=== PATIENT | female | born 1965 | race Caucasian/White ===

== ENCOUNTER → 2021-03-27 07:08 | Outpatient (CLI) | payer OTHER, SELFPAY ==
--- NOTE | 2021-03-27 09:04 | NEURO_ITS ---
NCS and/or EMG Patient Report Ordering Doctor: Braxton Rubio DATE OF SERVICE: 03/27/21 Indication: Intermittent numbness and tingling of the 4th/5th digits of both hands. Symptoms are prominent when awakening from sleep, but will subside with time. There is no fixed sensory loss or muscle weakness. Evaluate for ulnar neuropathy. Findings: Nerve conduction studies were performed in the right and left upper extremities. The right median motor study recording the abductor pollicis brevis showed a normal amplitude, normal distal latency and normal conduction velocity. The right ulnar motor study recording the abductor digiti minimi showed a normal amplitude, normal distal latency and normal conduction velocity. No conduction block or focal slowing was present across the elbow. The right ulnar motor study recording the first dorsal interosseous showed a normal amplitude, normal distal latency and normal conduction velocity. No conduction block or focal slowing was present across the elbow. Right median-ulnar lumbrical / interosseous motor latencies showed a normal median latency compared to the ulna r. The right median sensory response recording digit two showed a normal amplitude, latency and conduction velocity. The right ulnar sensory response recording digit five showed a normal amplitude, latency and conduction velocity. The right radial sensory response recording over the extensor snuff box showed a normal amplitude, latency and conduction velocity. The left median motor study recording the abductor pollicis brevis showed a normal amplitude, normal distal latency and normal conduction velocity. The left ulnar motor study recording the abductor digiti minimi showed a normal ampl itude, normal distal latency and normal conduction velocity. No conduction block or focal slowing was present across the elbow. Left median-ulnar lumbrical / interosseous motor latencies showed a normal median latency compared to the ulnar. The right median sensory response recording digit two showed a normal amplitude, latency and conduction velocity. The right ulnar sensory response recording digit five showed a normal amplitude, latency and conduction velocity. The right radial sensory response recording over the extensor snuff box showed a normal amplitude, latency and conduction velocity. Needle EMG of the right upper extremity and cervical paraspinal muscles was performed. No denervation was seen in any muscle. All motor unit morphology, activation and recruitment patterns were normal. Impression: This is a normal study. There is no electrophysiologic evidence of ulnar neuropathy across the elbow in either upper extremity. In addition, there is no electrophysiologic evidence of a cervical radiculopathy or other entrapment neuropathy in the right upper extremity. Please note, this test can be insensitive for detecting ulnar neuropathy when symptoms are transient. Presumably, in these patients, intermittent compression results in pain and paresthesias from ischemia, but without any fixed demyelination or axonal loss that can be demonstrated on electrodiagnostic st udies. Thus, clinical correlation is required in the interpretation of this negative study. Johnathan Ruiz D.O.
== END ==
PROVIDERS: PCP Internal Medicine; Referring Provider Orthopaedic Surgery; Visit Provider Orthopaedic Surgery
DX: R20.2 Paresthesia of skin (principal); M25.531 Pain in right wrist; M25.532 Pain in left wrist
CPT/HCPCS: 95886; 95913

== ENCOUNTER 2022-05-07 09:30 | Outpatient (RCR) | payer OTHER, SELFPAY ==
--- NOTE | 2022-02-19 14:15 | HP.PTEVAL ---
Patient's Visit Information CHASE RUBIN is a 56 year old F referred to Physical Therapy by Hipolito Hubbard PA-C with a diagnosis of LATERAL EPICONDYLITIS R ELBOW. Date of Evaluation: 02/19/22 Physical Therapist: Marilyn Seymour PT, Cert MDT - Visit Plan Frequency: 2-3x /Week Duration: 4-6 Weeks Plan: POSTURE CORRECTION/STRENGTHENING, INSTRUCTION IN APPROPRIATE BODY MECHANICS AND ACTIVITY MODIFICATIONS. R UE ROM, STRETCHING AND STRENGTHENING. HEP INSTRUCTION. - Subjective Work/Leisure: [employer] WORK[employer] FOR [employer]. WORKING ONE DAY A WEEK IN THE OFFICE. NO TRAVEL. MOSTLY WORKS FROM HOME. ABOUT 40 HOURS OF SITTING AND WORKING ON COMPUTER. Disability: NO. Present symptoms: R LATERAL ELBOW AND FOREARM PAIN. SHOOTING STABBING PAINS INTO ELBOW. AT TIMES THERE IS PAIN UP INTO BICEPS TOO. LM FINGER TINGLING R>L THAT STARTED LAST YEAR. Present since: SOMETIMES BETWEEN AUG AND NOV 2021. Pain Scale: Worst - 7/10 Least - 1/10. Currently: 11/24. Commenced as a result of: USING 10 LB WEIGHTS DOING BICEPS CURLS IN W POSTITION DURING SENIOR STRENGTH CLASS AT . Symptoms at onset: SOMEWHERE IN THE ELBOW. Worse: ROLLING OVER IN BED AND LIFTING IT, BRUSHING TEETH, PUTTING JEANS ON, LIFTING A COFFE CUP, ANYTHING LIFTING RIGHT ARM UP. (RIGHT HAND DOMINANT). EVEN STABILIZING WITH RIGHT UE TO PULL CAP OFF CHAPSTICK WITH L UE. Better: RIGHT ELBOW BAND. Disturbed sleep: YES. Previous history/Previous treatment: This episode: MELOXICAM, MEDROL DOSE PACK, EPICONDYLITIS BAND/BRACE, ANOTHER ELBOW BRACE JUST AT NIGHT BUT NO LONGER USING IT AND USING BAND INSTEAD. SAW PCP DR. IGLESIAS IN DEC 2021. ONE CANDIDO'T WITH SELF REFERRAL TO [facility] 02/13/22. VOLTERON GEL PRESCRIBED AND STARTED YESTERDAY. Accidents: NO. Unexplained weight loss: NO. Imaging: RIGHT ELBOW X-RAY AT [facility] - PATIENT NOT SURE OF RESULTS. PMH/Recent major surgery: RIGHT SHLD PAIN TREATED BY PT LAST YEAR - CALCIFICATION IN SHLD - NOT MUCH PAIN IN SHLD ANYMORE - EX HELPED UNTIL HURT ELBOW. LM CARPAL TUNNEL - NCT - AFTER SHLD WAS EVALUATED. DX'D WITH ARTHRITIS IN WRIST AND HANDS. NIGHT BRACES HELP WITH NUMBNESS AND TINGLING IN HANDS. THORACIC BACK ISSUE - TOOK 2-3 YEARS TO NOT HAVE CONSTANT PAIN A FEW YEARS AGO AFTER IT GOT INFLAMMED. STILL HAS TWINGES OF THORACIC PAIN. OTHER: EVEN MALOXICAM AND MEDROL DOSE RUSTAM HAVE NOT HELPED. JUST FINISHED DOSE RUSTAM AND IT DOESN'T SEEM TO BE SWOLLEN BUT STILL HURTS THE SAME AND STILL HAS SAME LIMITATATION. PATIENT IS EXPRESSING FRUSTRATION WITH ACTIVITY LIMITATIONS DUE TO RIGHT UE SX'S AND DEALING WITH COMBINATION OF R SHLD, R ELBOW AND LM HAND SYMPTOMS WITH FAIRLY RECENT ONSET. REPORTS ORTHO TOLD HER NOT TO DO ANYTHING STRENUOUS WITH RIGHT UE AT THIS TIME. FOLLOW UP WITH ORTHO PENDING IN 6 WKS TO CONSIDER CORTISONE SHOT. - Objective Sitting Posture/Standing Posture: GOOD. Other Observations: INDEP GAIT AND TRANSFERS. TENDS TO HOLD RIGHT ARM AT SIDE BENT. Motor deficit: PEAK FORCE MEASUREMENTS: SHLD FLEX R 9.3, L 10.8. SHLD ABD R 8.7, L 9.6. ELBOW FLEX R 8.7, L 10.3. ELBOW EXT R 10.9, L 11.2. 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 Sensory deficit: LM UE LIGHT TOUCH SENSATION GROSSLY INTACT. ROM deficit: -3 DEG EXT TO FULL FLEXION RIGHT ELBOW. Cervical Mvmt Loss: Flex: MIN. Pro: NIL. Ext: MIN. Ret: MOD. RSB: MOD. LSB: MOD. R Rot: MIN. L Rot: MIN. PATIENT DENIES PAIN WITH CERVICAL ROM TESTING ALL PLANES. Postural strength: FAIR. TREATMENT: ANATOMY EDUCATION AND INSTRUCTION IN APPROPRIATE ACTIVITY MODIFICATIONS. PATIENT COMMUNICATED A GOOD UNDERSTANDING OF ALL INSTRUCTIONS AFTER GIVEN. - Balance/Special Test Scores Quick DASH Score: [phone] - Goals Goal 1:: DECREASE C/O RIGHT ELBOW PAIN Goal Time Frame: 4-6 Weeks Goal 2:: INCREASE PAINFREE STRENGTH OF RIGHT UE TO EASE ADL'S. Goal Time Frame: 4-6 Weeks Goal 3:: INSTRUCT IN PROPHYLAXIS Goal Time Frame: 4-6 Weeks - Anticipated Interventions Patient/Client Instruction: Educate patient on: Condition, Plan of Care, Risk Factors For the Purpose of:: To improve self management Therapeutic Exercise to Include: Strength training, Flexibilty training, Neuromotor development For the Purpose of:: To decrease pain, To improve muscle performance and motor function, To increase tolerance to activity/condition/position, To improve ability of physical actions for home/community/work/leisure Manual Therapy Techniques to Include: Mobilization, Functional dry needling, Soft tissue mobilization For the Purpose of:: To decrease pain, To improve nutrient delivery to tissue Ultrasound (thermal/non thermal): Yes For the Purpose of:: To decrease pain, To improve nutrient delivery to tissue Thank you for the opportunity to evaluate your patient. For Medicare and Medicare HMO plans, please review the plan of care and approve it. It will need to be FAXED BACK to us at [phone] for Medicare purposes. For Medicare only, by signing this I certify the plan of care. Please let me know if there are questions or concerns regarding this plan of care. Physician Signature: Date:
--- NOTE | 2022-05-07 09:56 | HP.PTDCSUM ---
It has been my pleasure to treat CHASE RUBIN referred by Hipolito Hubbard PA-C, with the diagnosis of LATERAL EPICONDYLITIS R ELBOW for a total of 21 visit(s). Discharge Date: Please see the following information for a summary of their discharge status. Subjective: DOING GOOD. DOES NOT FEEL SHE NEEDS DRY NEEDLING OR ANY OTHER TREATMENT TODAY. USING LIGHT WEIGHTS IN SENIOR STRENGTH CLASS WITHOUT PAIN AND DOING HEP MODIFYING NEEDED. PAYING CLOSER ATTENTION TO WRIST POSITION DURING GRASP. KEEPING WRIST NEUTRAL INSTRUCTED HELPS. RIGHT ELBOW Pain Intensity (Out of 10): 1 % Improvement: 95 Objective/Function: PATIENT WAS SEEN TODAY FOR RE-ASSESSMENT OF PROGRESS TOWARD THE SET PT GOALS AND THE NEED FOR FURTHER PHYSICAL THERAPY VS READINESS FOR DISCHARGE. UPON EXAM TODAY: ALL PT GOALS MET AND PATINT IS INDEP WITH A HEP. IT IS OUR HOPE THAT SHE WILL CONTINUE TO IMPROVE WITH EX AND TIME. WRITTEN HEP PROVIDED Goal 1:: DECREASE C/O RIGHT ELBOW PAIN Goal Progress: Goal Met Goal 2:: INCREASE PAINFREE STRENGTH OF RIGHT UE TO EASE ADL'S. Goal Progress: Goal Met Goal 3:: INSTRUCT IN PROPHYLAXIS Goal Progress: Goal Met Plan: D/C. PATIENT AGREEABLE. If there are questions or concerns regarding this patient's physical therapy, please feel free to call me at [phone]. Thank you for the referral of this patient. Sincerely, Marilyn Seymour, PT, Cert MDT Balance/Gait/Functional tests - Balance/Special Test Scores Quick DASH Score: [phone]
== END 2022-05-07 10:10 | disposition home or self-care (01) ==
LOC: PT 09:30
PROVIDERS: PCP Internal Medicine; Referring Provider Physician Assistant; Visit Provider Physician Assistant
DX: M77.11 Lateral epicondylitis, right elbow (principal)
CPT/HCPCS: 97014; 97035; 97140; 97162; 97164; 97530; G0283

== ENCOUNTER → 2023-03-22 | Outpatient (CLI) | payer OTHER, SELFPAY ==
--- NOTE | 2023-03-22 14:45 | CT_ITS ---
STUDY: CT MAXILLOFACIAL SINUSES REASON FOR EXAM: Female, 57 years old. CHRONIC SINUSITIS RADIATION DOSAGE (If Supplied By Facility): CTDIvol = ( 33.06 ) mGy, DLP = ( 837.98 ) mGycm TECHNIQUE: The patient was scanned in a multi detector CT scanner. High resolution axial imaging was performed without the administration of intravenous contrast material. Sagittal and coronal images were reconstructed. Individualized dose optimization techniques were used for this CT. COMPARISON: None. FINDINGS: FRONTAL SINUSES: Normal aeration, without mucosal inflammatory disease. ETHMOIDAL SINUSES: Mild degree of mucosal thickening of the right ethmoid sinus. MAXILLARY SINUSES: Partial opacification of the right maxillary sinus. SPHENOIDAL SINUSES: Normal aeration, without mucosal inflammatory disease. There is patency of the bilateral maxillary infundibuli with normal uncinate processes, ethmoid bullae, and hiatus semilunaris. Normal bilateral middle turbinates. Normal bilateral inferior turbinates. Normal midline nasal septum. There is patency of the bilateral nasal airways. The visualized osseous structures are normal. The visualized bilateral orbital contents are normal. CT/Sinus/Facial Bone IMPRESSION: Mild degree of mucosal thickening of the right ethmoid sinus as well as partial opacification of the right maxillary sinus. Electronically Signed: Jalil Cruz MD at 15:00 EDT ,
== END | disposition home or self-care (01) ==
LOC: CT 14:38
PROVIDERS: PCP Internal Medicine; Referring Provider Otolaryngology; Visit Provider Otolaryngology
DX: J32.8 Other chronic sinusitis (principal)
CPT/HCPCS: 70486

== ENCOUNTER → 2024-03-20 | Outpatient (CLI) | payer OTHER, SELFPAY | END | disposition home or self-care (01) | LOC: LABSPEC 17:00 | PROVIDERS: PCP Internal Medicine; Referring Provider Otolaryngology; Visit Provider Otolaryngology | DX: J32.8 Other chronic sinusitis (principal) | CPT/HCPCS: 87070; 87205 ==

== ENCOUNTER → 2024-04-27 | Outpatient (CLI) | payer OTHER, SELFPAY | END | disposition home or self-care (01) | LOC: LAB 16:23 | PROVIDERS: PCP Internal Medicine; Referring Provider Otolaryngology; Visit Provider Otolaryngology | DX: J32.9 Chronic sinusitis, unspecified (principal) | CPT/HCPCS: 87070; 87205 ==